=== PATIENT | female | born 1980 | race Caucasian/White ===

== ENCOUNTER 2017-01-14 06:15 | Inpatient (IN) | payer OTHER ==
[~2017-01-14] VITALS: Ht 172.7 cm; Wt 93.0 kg
[~2017-01-14 06:15] MED LIST: ALPR-475 PO; BUPR300T49 PO; HYDR473S51 PO; OMEP-110 PO
[2017-01-14] MEDS ORDERED: SODIUM CHLORIDE 0.9% 1,000 ML IV ONE ×2 (06:38→08:21)
[2017-01-14] MEDS ORDERED: SODIUM CHLORIDE 0.9% 1,000ML IVBOLUS ONE ×2 (07:00→10:30)
[2017-01-14] MEDS ORDERED: ONDANSETRON 2MG/ML, 2ML IVPush ONE (07:00)
[2017-01-14] MEDS ORDERED: SODIUM CHLORIDE FLUSH 10ML SYR IVF ONE (07:00)
[2017-01-14] MEDS ORDERED: HYDROmorphone 1 MG/ML, 1ML ONE ×3 (07:01→08:36)
[2017-01-14] MEDS ORDERED: ONDANSETRON 2MG/ML, 2ML ONE ×3 (07:01→12:10)
[2017-01-14] MEDS: HYDROmorphone 1 MG/ML, 1ML IVPush PRN ×2 (07:03→07:58)
[2017-01-14 07:10] LABS: HCG UR OBC PASS
[2017-01-14] MEDS ORDERED: SIME125C PO (07:13)
[2017-01-14] MEDS ORDERED: BUPR-86 PO (07:13)
[2017-01-14] MEDS ORDERED: ALPR-475 PO (07:14)
[2017-01-14 07:15] LABS: ASPARTATE AMINO TRANSFERASE 42 U/L (15-37); BLOOD UREA NITROGEN 13 mg/dL (7-18)
[2017-01-14] MEDS ORDERED: HYDROmorphone 1 MG/ML, 1ML IVPush PRN ×2 (08:00→08:30)
[2017-01-14] MEDS ORDERED: SODIUM CHLORIDE FLUSH 10ML SYR IVF PRN (08:30)
[2017-01-14] MEDS ORDERED: PIPERACILLIN/TAZO/PMX 3.375GM 50 ML IVPB ONE (08:30)
[2017-01-14] MEDS ORDERED: ONDANSETRON 2MG/ML, 2ML IVPush PRN (08:30)
[2017-01-14] MEDS ORDERED: PIPERACILLIN/TAZO/PMX 3.375GM 50 ML ONE (08:38)
[2017-01-14] MEDS ORDERED: HYDROmorphone 2 MG/ML, 1ML ONE ×2 (10:22→13:34)
[2017-01-14] MEDS ORDERED: HYDROmorphone 2 MG/ML, 1ML IVPush PRN (10:30)
[2017-01-14] MEDS ORDERED: KETAMINE 10 MG/ML, 20ML ONE (11:41)
[2017-01-14] MEDS ORDERED: MIDAZOLAM 1 MG/ML, 2ML ONE (11:41)
[2017-01-14] MEDS ORDERED: FENTANYL PF 250 MCG/5ML ONE (11:41)
[2017-01-14] MEDS ORDERED: NEOSTIGMINE 1 MG/ML, 10ML ONE (12:10)
[2017-01-14] MEDS ORDERED: GLYCOPYRROLATE 0.2MG/1ML ONE (12:10)
[2017-01-14] MEDS ORDERED: SUCCINYLCHOLINE 20 MG/ML, 10ML ONE (12:10)
[2017-01-14] MEDS ORDERED: ROCURONIUM 10 MG/ML ONE ×2 (12:10)
[2017-01-14] MEDS ORDERED: PROPOFOL 10 MG/ML, 20ML ONE (12:10)
[2017-01-14] MEDS ORDERED: DEXAMETHASONE 4 MG/ML, 1ML ONE (12:10)
[2017-01-14] MEDS ORDERED: MEPERIDINE/PF 25MG/0.5ML IVPush PRN (13:00)
[2017-01-14] MEDS ORDERED: HYDROcodone/APAP 7.5-325MG/15ML UDC PO PRN (13:00)
[2017-01-14] MEDS ORDERED: FENTANYL PF 100 MCG/2ML IV PRN (13:00)
[2017-01-14] MEDS ORDERED: METOCLOPRAMIDE 5 MG/ML, 2ML IV PRN (13:00)
[2017-01-14] MEDS: HYDROmorphone 1 MG/ML, 1ML IV PRN ×10 (13:30→23:00)
[2017-01-14] MEDS ORDERED: FENTANYL PF 100 MCG/2ML ONE (13:34)
[2017-01-14 14:54] VITALS: BP 100/65
[2017-01-14] MEDS ORDERED: DIPHENHYDRAMINE 25 MG CAPSULE PO PRN (15:30)
[2017-01-14] MEDS ORDERED: LACTATED RINGERS 1,000 ML IV SCH (15:30)
[2017-01-14] MEDS: KETOROLAC 30 MG/1 ML IV SCH ×2 (15:53→21:48)
[2017-01-14 16:07] VITALS: BP 100/65
[2017-01-14] MEDS: LACTATED RINGERS 1,000 ML IV SCH ×2 (16:44→23:03)
[2017-01-14] MEDS: PIPERACILLIN/TAZO/PMX 3.375GM 50 ML IV SCH ×2 (16:44→23:01)
[2017-01-14 18:58] VITALS: BP 94/61
[2017-01-14] MEDS: OMEPRAZOLE 20 MG CAPSULE.DR PO SCH (21:00)
[2017-01-14] MEDS: ONDANSETRON 2MG/ML, 2ML IV PRN (21:48)
[2017-01-14] MEDS: DIPHENHYDRAMINE 50 MG/ML, 1ML IV PRN (21:49)
[2017-01-15 00:25] VITALS: BP 96/59
[2017-01-15] MEDS: HYDROmorphone 1 MG/ML, 1ML IV PRN ×9 (02:04→22:41)
[2017-01-15] MEDS: KETOROLAC 30 MG/1 ML IV SCH ×4 (03:48→21:31)
[2017-01-15 03:50] VITALS: BP 95/56
[2017-01-15] MEDS: PIPERACILLIN/TAZO/PMX 3.375GM 50 ML IV SCH ×4 (05:12→22:33)
[2017-01-15] MEDS: LACTATED RINGERS 1,000 ML IV SCH ×3 (05:13→21:21)
[2017-01-15] MEDS: ONDANSETRON 2MG/ML, 2ML IV PRN ×4 (05:24→22:33)
[2017-01-15 05:35] LABS: BLOOD UREA NITROGEN 11 mg/dL (7-18)
[2017-01-15 07:11] VITALS: BP 86/46
[2017-01-15] MEDS: ENOXAPARIN 40 MG/0.4 ML SQ SCH (08:59)
[2017-01-15] MEDS: OMEPRAZOLE 20 MG CAPSULE.DR PO SCH ×2 (09:00→20:25)
[2017-01-15] MEDS: DIPHENHYDRAMINE 50 MG/ML, 1ML IV PRN ×2 (12:50→22:33)
[2017-01-15 13:21] VITALS: BP 90/53
[2017-01-15] MEDS ORDERED: LACTATED RINGERS 1,000 ML IVBOLUS ONE (18:00)
[2017-01-15 19:07] VITALS: BP 90/53
[2017-01-15] MEDS ORDERED: SODIUM CHLORIDE 0.9% 1,000 ML IV ONE (23:00)
[2017-01-16] MEDS ORDERED: SODIUM CHLORIDE 0.9% 1,000 ML IV ONE (01:00)
[2017-01-16 01:26] VITALS: BP 88/54
[2017-01-16] MEDS: HYDROmorphone 1 MG/ML, 1ML IV PRN ×5 (01:28→10:05)
[2017-01-16] MEDS: ONDANSETRON 2MG/ML, 2ML IV PRN ×6 (02:37→22:21)
[2017-01-16] MEDS: PIPERACILLIN/TAZO/PMX 3.375GM 50 ML IV SCH ×4 (04:35→22:21)
[2017-01-16 05:22] LABS: BLOOD UREA NITROGEN 12 mg/dL (7-18)
[2017-01-16] MEDS: DIPHENHYDRAMINE 50 MG/ML, 1ML IV PRN ×3 (06:33→22:21)
[2017-01-16] MEDS: LACTATED RINGERS 1,000 ML IV SCH ×3 (07:50→22:22)
[2017-01-16] MEDS: ENOXAPARIN 40 MG/0.4 ML SQ SCH (07:50)
[2017-01-16] MEDS: OMEPRAZOLE 20 MG CAPSULE.DR PO SCH ×2 (07:50→22:22)
[2017-01-16 08:55] VITALS: BP 94/61
[2017-01-16] MEDS: MORPHINE SULFATE 4 MG/ML, 1ML IVPush PRN ×3 (13:02→22:21)
[2017-01-16] MEDS: BUTALB/APAP/CAFFEINE 50MG/325MG/40MG PO PRN (14:23)
[2017-01-16 14:41] VITALS: BP 99/65
[2017-01-16 20:05] VITALS: BP 104/71
[2017-01-17] MEDS: ONDANSETRON 2MG/ML, 2ML IV PRN ×5 (02:14→21:31)
[2017-01-17] MEDS: MORPHINE SULFATE 4 MG/ML, 1ML IVPush PRN ×5 (02:15→21:31)
[2017-01-17] MEDS: PIPERACILLIN/TAZO/PMX 3.375GM 50 ML IV SCH ×4 (04:30→22:28)
[2017-01-17 04:33] VITALS: BP 106/62
[2017-01-17 06:04] LABS: BLOOD UREA NITROGEN 8 mg/dL (7-18)
[2017-01-17 06:07] LABS: ASPARTATE AMINO TRANSFERASE 14 U/L (15-37)
[2017-01-17] MEDS: LACTATED RINGERS 1,000 ML IV SCH ×2 (06:16→10:40)
[2017-01-17 07:00] VITALS: BP 98/60
[2017-01-17] MEDS: ENOXAPARIN 40 MG/0.4 ML SQ SCH (08:52)
[2017-01-17] MEDS: OMEPRAZOLE 20 MG CAPSULE.DR PO SCH ×2 (10:22→19:55)
[2017-01-17] MEDS: DIPHENHYDRAMINE 50 MG/ML, 1ML IV PRN ×2 (10:23→22:28)
[2017-01-17] MEDS ORDERED: MAGNESIUM SULFATE PMX 2GM/50ML 50 ML IVPB ONE (11:30)
[2017-01-17] MEDS: NS + 20MEQ KCL 1,000 ML IV SCH (11:57)
[2017-01-17 14:08] VITALS: BP 110/70
[2017-01-17] MEDS: BUTALB/APAP/CAFFEINE 50MG/325MG/40MG PO PRN ×2 (19:54→23:53)
[2017-01-17 20:05] VITALS: BP 90/66
[2017-01-18 04:15] VITALS: BP 107/67
[2017-01-18] MEDS: DIPHENHYDRAMINE 50 MG/ML, 1ML IV PRN ×5 (04:17→22:22)
[2017-01-18] MEDS: PIPERACILLIN/TAZO/PMX 3.375GM 50 ML IV SCH ×4 (04:17→22:16)
[2017-01-18] MEDS: MORPHINE SULFATE 4 MG/ML, 1ML IVPush PRN ×5 (04:17→21:09)
[2017-01-18] MEDS: ONDANSETRON 2MG/ML, 2ML IV PRN ×5 (04:17→21:09)
[2017-01-18 04:59] LABS: BLOOD UREA NITROGEN 7 mg/dL (7-18)
[2017-01-18 06:58] VITALS: BP 99/63
[2017-01-18 07:03] VITALS: BP 125/84
[2017-01-18] MEDS: NS + 20MEQ KCL 1,000 ML IV SCH (07:55)
[2017-01-18] MEDS: ENOXAPARIN 40 MG/0.4 ML SQ SCH (08:10)
[2017-01-18] MEDS: OMEPRAZOLE 20 MG CAPSULE.DR PO SCH ×2 (08:11→21:04)
[2017-01-18] MEDS: SODIUM CHLORIDE FLUSH 10ML SYR IVF SCH ×2 (10:59→22:17)
[2017-01-18] MEDS: BUTALB/APAP/CAFFEINE 50MG/325MG/40MG PO PRN ×2 (13:32→21:04)
[2017-01-18 14:18] VITALS: BP 89/48
[2017-01-18 20:01] VITALS: BP 84/51
[2017-01-19] MEDS: ONDANSETRON 2MG/ML, 2ML IV PRN ×2 (03:49→09:22)
[2017-01-19] MEDS: MORPHINE SULFATE 4 MG/ML, 1ML IVPush PRN ×2 (03:49→09:22)
[2017-01-19 03:58] VITALS: BP 101/65
[2017-01-19] MEDS: PIPERACILLIN/TAZO/PMX 3.375GM 50 ML IV SCH ×4 (04:57→22:14)
[2017-01-19] MEDS: DIPHENHYDRAMINE 50 MG/ML, 1ML IV PRN (04:57)
[2017-01-19] MEDS: SODIUM CHLORIDE FLUSH 10ML SYR IVF SCH (09:00)
[2017-01-19 09:02] VITALS: BP 102/65
[2017-01-19] MEDS: OMEPRAZOLE 20 MG CAPSULE.DR PO SCH ×2 (09:22→19:41)
[2017-01-19] MEDS: ENOXAPARIN 40 MG/0.4 ML SQ SCH (09:22)
[2017-01-19] MEDS: HYDROcodone/APAP 7.5-325MG/15ML UDC PO PRN ×3 (11:16→19:41)
[2017-01-19 15:25] VITALS: BP 87/58
[2017-01-19 19:35] VITALS: BP 91/72
[2017-01-20] MEDS: HYDROcodone/APAP 7.5-325MG/15ML UDC PO PRN ×2 (01:19→07:46)
[2017-01-20 01:44] VITALS: BP 97/60
[2017-01-20] MEDS ORDERED: HYDR473S47 PO (03:38)
[2017-01-20] MEDS ORDERED: LOPE1LIQ6 PO (03:40)
[2017-01-20] MEDS: PIPERACILLIN/TAZO/PMX 3.375GM 50 ML IV SCH (05:08)
[2017-01-20] MEDS: OMEPRAZOLE 20 MG CAPSULE.DR PO SCH (07:46)
[2017-01-20] MEDS: ENOXAPARIN 40 MG/0.4 ML SQ SCH (07:46)
[2017-01-20] MEDS: SODIUM CHLORIDE FLUSH 10ML SYR IVF SCH (07:46)
[2017-01-20 07:50] VITALS: BP 118/78
== END 2017-01-20 08:45 | disposition home or self-care (01) | DRG 331 ==
LOC: ED 07:53 → EDIP 08:21 → 4NOR 10:02
PROVIDERS: ADMIT Colon & Rectal Surgery; ATTEND Colon & Rectal Surgery
PROC: 0DB80ZZ Excision of Small Intestine, Open Approach (ICD-10-PCS; 2017-01-14)
PROC: 0DQB0ZZ Repair Ileum, Open Approach (ICD-10-PCS; principal; 2017-01-14 11:00)
DX: K43.4 Parastomal hernia with gangrene (principal); E66.01 Morbid (severe) obesity due to excess calories; Z90.49 Acquired absence of other specified parts of digestive tract; K21.9 Gastro-esophageal reflux disease without esophagitis; Z98.84 Bariatric surgery status; Z43.2 Encounter for attention to ileostomy; Z98.51 Tubal ligation status
CPT/HCPCS: 36415; 74022; 76770; 80048; 80053; 81001; 81003; 81025; 82040; 83605; 83735; 85025; 85610; 85730; 87040; 87086; 88307; 96361; 96365; 96375; 96376; C1729; J1100; J1170; J1650; J1885; J2250; J2405; J2543; J2704; J2710; J3010; J3480; J3490; J0330; J1200; J3475; J7030; J7120; Q0163

== ENCOUNTER → 2017-01-25 | Outpatient (CLI) | payer OTHER ==
[~2017-01-25] MED LIST changes: +BUPR-86 PO; +HYDR473S47 PO; +LOPE1LIQ6 PO; +SIME125C PO
== END | disposition home or self-care (01) ==
LOC: WOUND 10:29
PROVIDERS: ATTEND Internal Medicine
DX: T81.31XD Disruption of external operation (surgical) wound, not elsewhere classified, subsequent encounter (principal); K21.9 Gastro-esophageal reflux disease without esophagitis; E66.01 Morbid (severe) obesity due to excess calories; Z93.2 Ileostomy status; Y83.8 Other surgical procedures as the cause of abnormal reaction of the patient, or of later complication, without mention of misadventure at the time of the procedure
CPT/HCPCS: 99215

== ENCOUNTER → 2017-02-01 | Outpatient (CLI) | payer OTHER | END | disposition home or self-care (01) | LOC: WOUND 10:04 | PROVIDERS: ATTEND Internal Medicine | DX: T81.31XD Disruption of external operation (surgical) wound, not elsewhere classified, subsequent encounter (principal); I48.91 Unspecified atrial fibrillation; I10 Essential (primary) hypertension; Z93.2 Ileostomy status; Z72.89 Other problems related to lifestyle; Z86.73 Personal history of transient ischemic attack (TIA), and cerebral infarction without residual deficits; Z85.828 Personal history of other malignant neoplasm of skin; Y83.8 Other surgical procedures as the cause of abnormal reaction of the patient, or of later complication, without mention of misadventure at the time of the procedure | CPT/HCPCS: 99215 ==

== ENCOUNTER → 2017-02-04 | Outpatient (CLI) | payer OTHER | END | disposition home or self-care (01) | LOC: STAR 13:17 | PROVIDERS: ATTEND Colon & Rectal Surgery | DX: Z02.9 Encounter for administrative examinations, unspecified (principal) ==

== ENCOUNTER → 2017-02-08 | Outpatient (CLI) | payer OTHER | END | disposition home or self-care (01) | LOC: WOUND 09:30 | PROVIDERS: ATTEND Internal Medicine | DX: T81.31XD Disruption of external operation (surgical) wound, not elsewhere classified, subsequent encounter (principal); Z93.2 Ileostomy status; I10 Essential (primary) hypertension; Z85.828 Personal history of other malignant neoplasm of skin; Z86.73 Personal history of transient ischemic attack (TIA), and cerebral infarction without residual deficits; E66.01 Morbid (severe) obesity due to excess calories; Z68.26 Body mass index [BMI] 26.0-26.9, adult; K21.9 Gastro-esophageal reflux disease without esophagitis; Y83.8 Other surgical procedures as the cause of abnormal reaction of the patient, or of later complication, without mention of misadventure at the time of the procedure | CPT/HCPCS: 99215 ==

== ENCOUNTER → 2017-02-08 | Outpatient (CLI) | payer OTHER | END | disposition home or self-care (01) | LOC: RAD 07:36 | PROVIDERS: ATTEND Colon & Rectal Surgery | DX: Z01.818 Encounter for other preprocedural examination (principal); K57.30 Diverticulosis of large intestine without perforation or abscess without bleeding; Z98.890 Other specified postprocedural states; Z93.2 Ileostomy status | CPT/HCPCS: 74270 ==

== ENCOUNTER 2017-02-10 07:35 | Day surgery (SDC) | payer OTHER ==
[~2017-02-10] VITALS: Ht 172.7 cm; Wt 78.0 kg
[2017-02-10 07:54] VITALS: BP 100/70
[2017-02-10] MEDS ORDERED: LACTATED RINGERS 1,000 ML IV SCH (07:54)
[2017-02-10] MEDS ORDERED: LIDOCAINE 1%, 2ML SQ PRN (08:00)
[2017-02-10 08:17] LABS: HCG UR OBC PASS
[2017-02-10] MEDS ORDERED: FENTANYL PF 100 MCG/2ML ONE (09:26)
[2017-02-10] MEDS ORDERED: MIDAZOLAM 1 MG/ML, 2ML ONE (09:26)
[2017-02-10] MEDS ORDERED: MEPERIDINE/PF 25MG/0.5ML IVPush PRN (10:30)
[2017-02-10] MEDS ORDERED: HYDROcodone/APAP 7.5-325MG/15ML UDC PO PRN (10:30)
[2017-02-10] MEDS ORDERED: EPHEDRINE 50 MG/ML, 1ML IVPush PRN (10:30)
[2017-02-10] MEDS ORDERED: HYDROmorphone 1 MG/ML, 1ML IV PRN (10:30)
[2017-02-10] MEDS ORDERED: ALBUTEROL SULFATE 2.5 MG/3 ML NPPB PRN (10:30)
[2017-02-10] MEDS ORDERED: ACETAMINOPHEN 325 MG TABLET PO PRN (10:30)
[2017-02-10] MEDS ORDERED: FENTANYL PF 100 MCG/2ML IV PRN (10:30)
[2017-02-10] MEDS ORDERED: MIDAZOLAM 1 MG/ML, 2ML IV PRN (10:30)
[2017-02-10] MEDS ORDERED: ONDANSETRON 2MG/ML, 2ML IVPush PRN (10:30)
[2017-02-10] MEDS ORDERED: MEPERIDINE/PF 25MG/0.5ML ONE (10:40)
[2017-02-10] MEDS ORDERED: PROMETHAZINE 25 MG/ML, 1ML ONE (10:40)
[2017-02-10] MEDS: PROMETHAZINE 25 MG/ML, 1ML IV PRN ×2 (10:43→11:13)
[2017-02-10] MEDS ORDERED: PROPOFOL 10 MG/ML, 50ML ONE (15:44)
[2017-02-10] MEDS ORDERED: KETOROLAC 30 MG/1 ML ONE (15:44)
== END 2017-02-10 12:40 | disposition home or self-care (01) ==
LOC: OUT 07:35
PROVIDERS: ATTEND Colon & Rectal Surgery
DX: K57.30 Diverticulosis of large intestine without perforation or abscess without bleeding (principal); K52.9 Noninfective gastroenteritis and colitis, unspecified; Z93.2 Ileostomy status; Z90.49 Acquired absence of other specified parts of digestive tract; K21.9 Gastro-esophageal reflux disease without esophagitis; Z88.6 Allergy status to analgesic agent; F32.9 Major depressive disorder, single episode, unspecified; E66.01 Morbid (severe) obesity due to excess calories; Z68.26 Body mass index [BMI] 26.0-26.9, adult; Z90.3 Acquired absence of stomach [part of]; Z98.51 Tubal ligation status; Z82.49 Family history of ischemic heart disease and other diseases of the circulatory system; Z80.3 Family history of malignant neoplasm of breast; Z80.1 Family history of malignant neoplasm of trachea, bronchus and lung; Z83.3 Family history of diabetes mellitus; Z87.891 Personal history of nicotine dependence
CPT/HCPCS: 45378; 81025; J1885; J2175; J2250; J2550; J2704; J7120; J3010

== ENCOUNTER → 2017-03-09 | Outpatient (CLI) | payer OTHER ==
[2017-03-09 11:22] LABS: ASPARTATE AMINO TRANSFERASE 40 U/L (15-37); BLOOD UREA NITROGEN 14 mg/dL (7-18)
== END | disposition home or self-care (01) ==
LOC: STAR 10:14
PROVIDERS: ATTEND Colon & Rectal Surgery
DX: Z01.818 Encounter for other preprocedural examination (principal)
CPT/HCPCS: 36415; 80053; 85025; 93005

== ENCOUNTER 2017-09-02 17:01 | Inpatient (IN) | payer OTHER ==
[~2017-09-02] VITALS: Ht 172.7 cm; Wt 86.8 kg
[~2017-09-02 17:01] MED LIST changes: +HYDR15SO3 PO; +METR500T PO; +NEOM500T PO; +ONDA4TAB7 PO
[2017-09-02] MEDS ORDERED: ONDANSETRON 2MG/ML, 2ML IVPush ONE ×2 (17:30→20:30)
[2017-09-02] MEDS ORDERED: SODIUM CHLORIDE FLUSH 10ML SYR IVF ONE ×2 (17:30→19:00)
[2017-09-02 17:49] LABS: HEMATOCRIT 35.8 % (34.6-47.8); HEMOGLOBIN 11.6 g/dL (11.7-16.4); WHITE BLOOD COUNT 3.4 x10^3/uL (3.4-10)
[2017-09-02] MEDS ORDERED: ONDANSETRON 2MG/ML, 2ML ONE ×2 (17:49→20:26)
[2017-09-02] MEDS ORDERED: MORPHINE SULFATE 4 MG/ML, 1ML ONE ×3 (17:49→20:26)
[2017-09-02 18:03] LABS: BLOOD UREA NITROGEN 7 mg/dL (7-18)
[2017-09-02] MEDS: MORPHINE SULFATE 4 MG/ML, 1ML IVPush PRN ×2 (18:04→19:03)
[2017-09-02 18:08] LABS: ASPARTATE AMINO TRANSFERASE 24 U/L (15-37)
[2017-09-02] MEDS ORDERED: OMNIPAQUE 350 MG/ML, 100ML BOTTLE ONE (18:37)
[2017-09-02] MEDS ORDERED: SODIUM CHLORIDE 0.9% 1,000ML IVBOLUS ONE (19:00)
[2017-09-02] MEDS ORDERED: MORPHINE SULFATE 4 MG/ML, 1ML IVPush ONE (20:30)
[2017-09-02] MEDS ORDERED: DOCUSATE 100 MG CAPSULE PO PRN (20:30)
[2017-09-02] MEDS ORDERED: ENALAPRILAT 1.25 MG/ML, 2ML IVPush PRN (20:30)
[2017-09-02] MEDS ORDERED: TEMAZEPAM 15 MG CAPSULE PO PRN (20:30)
[2017-09-02] MEDS ORDERED: ACETAMINOPHEN 325 MG TABLET PO PRN (20:30)
[2017-09-02] MEDS ORDERED: ENOXAPARIN 40 MG/0.4 ML SQ SCH (20:30)
[2017-09-02] MEDS: SODIUM CHLORIDE 0.9% 1,000 ML IV SCH (20:58)
[2017-09-02 21:08] VITALS: BP 98/63
[2017-09-02] MEDS: morphine SULFATE 10 MG/ML, 1ML IVPush PRN ×2 (22:18→22:45)
[2017-09-02] MEDS: ONDANSETRON 2MG/ML, 2ML IVPush PRN (22:18)
[2017-09-03 01:17] VITALS: BP 100/67
[2017-09-03] MEDS: morphine SULFATE 10 MG/ML, 1ML IVPush PRN ×3 (02:21→09:08)
[2017-09-03] MEDS: ONDANSETRON 2MG/ML, 2ML IVPush PRN (03:49)
[2017-09-03] MEDS: SODIUM CHLORIDE 0.9% 1,000 ML IV SCH ×2 (03:49→12:01)
[2017-09-03] MEDS ORDERED: PROMETHAZINE 12.5 MG SUPP PR PRN (06:00)
[2017-09-03 06:42] VITALS: BP 96/60
[2017-09-03] MEDS ORDERED: OMEPRAZOLE 20 MG CAPSULE.DR PO SCH (09:00)
[2017-09-03] MEDS ORDERED: METOCLOPRAMIDE 5 MG/ML, 2ML IVPush PRN (09:30)
[2017-09-03] MEDS ORDERED: PANTOPRAZOLE 40 MG IV IVPush SCH (09:30)
[2017-09-03] MEDS ORDERED: HYDROcodone/APAP 7.5-325MG/15ML UDC PO PRN (11:00)
[2017-09-03 13:59] VITALS: BP 101/64
[2017-09-03 14:05] VITALS: BP 90/55
[2017-09-03] MEDS ORDERED: PROM50SU6 PR (15:38)
[2017-09-03] MEDS ORDERED: METO5TAB57 PO (15:38)
== END 2017-09-03 18:50 | disposition home or self-care (01) | DRG 392 ==
LOC: ED 19:37 → EDIP 20:39 → 3NE 20:39
PROVIDERS: ADMIT Surgery; ATTEND Surgery
DX: R10.11 Right upper quadrant pain (principal); F33.0 Major depressive disorder, recurrent, mild; E66.9 Obesity, unspecified; R11.2 Nausea with vomiting, unspecified; K21.9 Gastro-esophageal reflux disease without esophagitis; Z90.49 Acquired absence of other specified parts of digestive tract; Z68.29 Body mass index [BMI] 29.0-29.9, adult; Z90.3 Acquired absence of stomach [part of]; Z93.2 Ileostomy status; Z88.5 Allergy status to narcotic agent
CPT/HCPCS: 36415; 74177; 80053; 81003; 83690; 84703; 85025; 85379; 93005; 96361; 96374; 96375; 96376; J2405; Q9967; C9113; J2270; J2765; J7030

== ENCOUNTER 2017-09-06 15:01 | Emergency (ER) | payer OTHER ==
[~2017-09-06] VITALS: Ht 172.7 cm; Wt 86.3 kg
[~2017-09-06 15:01] MED LIST changes: +METO5TAB57 PO; +PROM50SU6 PR
[2017-09-06] MEDS ORDERED: SODIUM CHLORIDE 0.9% 1,000ML IVBOLUS ONE (16:00)
[2017-09-06] MEDS ORDERED: PROMETHAZINE 25 MG/ML, 1ML IM ONE (16:00)
[2017-09-06] MEDS ORDERED: SODIUM CHLORIDE FLUSH 10ML SYR IVF ONE (16:00)
[2017-09-06 16:32] LABS: HEMOGLOBIN 12.8 g/dL (11.7-16.4); WHITE BLOOD COUNT 3.9 x10^3/uL (3.4-10)
[2017-09-06 16:40] LABS: BLOOD UREA NITROGEN 9 mg/dL (7-18)
[2017-09-06 16:47] LABS: ASPARTATE AMINO TRANSFERASE 31 U/L (15-37)
[2017-09-06 17:32] VITALS: BP 100/66
== END 2017-09-06 18:13 | disposition home or self-care (01) ==
LOC: ED 17:30
DX: A08.4 Viral intestinal infection, unspecified (principal); K21.9 Gastro-esophageal reflux disease without esophagitis; Z90.49 Acquired absence of other specified parts of digestive tract
CPT/HCPCS: 36415; 80053; 81003; 83690; 84703; 85025; 93005; 96360; 99285; J7030

== ENCOUNTER → 2017-11-11 | Outpatient (CLI) | payer OTHER ==
[2017-11-11 10:29] LABS: BASOPHILS # (AUTO) 0.02 x10^3/uL (0-0.1); BASOPHILS % (AUTO) 1 % (0-1); EOSINOPHILS # (AUTO) 0.05 x10^3/uL (0-0.4); EOSINOPHILS % (AUTO) 1 % (1-7); LYMPHOCYTES # (AUTO) 1.31 x10^3/uL (1-3.4); LYMPHOCYTES % (AUTO) 35 % (22-44); MD NO; MEAN CORPUSCULAR HEMOGLOBIN 27.2 pg (27.0-34.8); MEAN CORPUSCULAR HGB CONC 33.2 g/dL (32.4-35.8); MEAN CORPUSCULAR VOLUME 82.1 fL (80-100); MEAN PLATELET VOLUME 6.3 fL (7.4-10.4); MONOCYTES # (AUTO) 0.29 x10^3/uL (0.2-0.8); MONOCYTES % (AUTO) 8 % (2-9); NEUTROPHILS # (AUTO) 2.06 x10^3/uL (1.8-6.8); NEUTROPHILS % (AUTO) 55 % (42-75); PLATELET COUNT 290 x10^3/uL (130-400); RED BLOOD COUNT 4.06 x10^6/uL (3.82-5.3); RED CELL DISTRIBUTION WIDTH 17.3 % (9.6-15.2)
[2017-11-11 10:41] LABS: ALANINE AMINOTRANSFERASE 30 U/L (12-78); ALBUMIN 3.7 g/dL (3.4-5.0); ANION GAP 4 mmol/L (5-15); CALCIUM 8.3 mg/dL (8.5-10.1); CHLORIDE 108 mmol/L (98-107); CREATININE 0.77 mg/dL (0.55-1.02)
[2017-11-11 11:06] LABS: % IRON SATURATION 7 % (20-55); ALKALINE PHOSPHATASE 93 U/L (45-117); BILIRUBIN,TOTAL 0.3 mg/dL (0.2-1.0); IRON LEVEL 29 mcg/dL (50-170); TOTAL IRON BINDING CAPACITY 440 mcg/dL (250-450); TOTAL PROTEIN 6.6 g/dL (6.4-8.2)
== END | disposition home or self-care (01) ==
LOC: LAB 10:17
PROVIDERS: ATTEND Internal Medicine Gastroenterology
DX: R11.0 Nausea (principal); R10.9 Unspecified abdominal pain; R14.0 Abdominal distension (gaseous)
CPT/HCPCS: 36415; 80053; 82306; 82607; 82728; 82746; 83540; 83550; 85025

== ENCOUNTER → 2017-12-16 | Outpatient (CLI) | payer OTHER | END | disposition home or self-care (01) | LOC: CFH 08:50 | PROVIDERS: ATTEND Internal Medicine Gastroenterology | DX: K21.9 Gastro-esophageal reflux disease without esophagitis (principal); K44.9 Diaphragmatic hernia without obstruction or gangrene; Z98.84 Bariatric surgery status | CPT/HCPCS: 74241 ==

== ENCOUNTER → 2018-07-13 | Outpatient (CLI) | payer OTHER ==
[~2018-07-13] MED LIST changes: +ALPR0.25 PO; +BUPR300T4 PO; +CALC300T4 PO; +COLE1TAB2 PO; +MULT1TAB60 PO; +OMEP40CA6 PO; +POLY17PO5 PO; +SIME62.5 PO
== END | disposition home or self-care (01) ==
LOC: STAR 10:06
PROVIDERS: ATTEND Thoracic Surgery (Cardiothoracic Vascular Surgery)
DX: Z02.9 Encounter for administrative examinations, unspecified (principal)

== ENCOUNTER 2018-07-19 06:09 | Observation (INO) | payer OTHER ==
[2018-07-13 10:44] VITALS: BP 109/66
[~2018-07-19] VITALS: Ht 172.7 cm; Wt 94.0 kg
[~2018-07-19 06:09] MED LIST changes: -COLE1TAB2 PO
[2018-07-19] MEDS ORDERED: BUPIVACAINE/PF 0.5% ONE (06:49)
[2018-07-19] MEDS ORDERED: EPINEPHRINE 1 MG/ML, 1ML ONE (06:49)
[2018-07-19] MEDS ORDERED: LACTATED RINGERS 1,000 ML IV SCH (07:38)
[2018-07-19 07:47] LABS: HCG UR SG 1.007 (1.003-1.030)
[2018-07-19] MEDS ORDERED: MIDAZOLAM 1 MG/ML, 2ML ONE (07:49)
[2018-07-19] MEDS ORDERED: COLE1TAB2 PO (07:49)
[2018-07-19] MEDS ORDERED: SUCCINYLCHOLINE 20 MG/ML, 10ML ONE (07:49)
[2018-07-19] MEDS ORDERED: FENTANYL PF 100 MCG/2ML ONE ×3 (07:49→10:41)
[2018-07-19] MEDS ORDERED: CEFAZOLIN 1,000 MG ONE ×2 (07:49)
[2018-07-19] MEDS ORDERED: PROPOFOL 10 MG/ML, 20ML ONE (07:49)
[2018-07-19] MEDS ORDERED: ONDANSETRON ODT 8 MG PO ONE (08:00)
[2018-07-19] MEDS ORDERED: LIDOCAINE-MPF 1%, 2ML INFIL ONE (08:00)
[2018-07-19] MEDS ORDERED: ACETAMINOPHEN 500 MG TABLET PO ONE (08:00)
[2018-07-19] MEDS ORDERED: LORazepam 2 MG/ML, 1ML IVPush PRN ×2 (08:30→15:30)
[2018-07-19] MEDS ORDERED: hydrALAzine 20 MG/ML, 1ML IV PRN (08:30)
[2018-07-19] MEDS ORDERED: SCOPOLAMINE PATCH, 1.5MG PATCH.TD72 TD PRN (08:30)
[2018-07-19] MEDS ORDERED: LABETALOL 5MG/ML, 20ML IV PRN (08:30)
[2018-07-19] MEDS ORDERED: ALBUTEROL/IPRATROPIUM 2.5MG/0.5MG, 3 ML NPPB PRN (08:30)
[2018-07-19] MEDS ORDERED: PROCHLORPERAZINE 5 MG/ML, 2ML IV PRN (08:30)
[2018-07-19] MEDS ORDERED: MORPHINE SULFATE 4 MG/ML, 1ML IVPush PRN (08:30)
[2018-07-19] MEDS ORDERED: MEPERIDINE/PF 25MG/0.5ML IVPush PRN (08:30)
[2018-07-19] MEDS ORDERED: MIDAZOLAM 1 MG/ML, 2ML IV PRN (08:30)
[2018-07-19] MEDS ORDERED: ROCURONIUM 10 MG/ML,10ML ONE (08:49)
[2018-07-19] MEDS ORDERED: GLYCOPYRROLATE 0.2MG/1ML, 5ML ONE (08:49)
[2018-07-19] MEDS ORDERED: NEOSTIGMINE 1 MG/ML, 10ML ONE (08:49)
[2018-07-19] MEDS ORDERED: DEXAMETHASONE 4 MG/ML, 1ML ONE ×2 (09:06)
[2018-07-19] MEDS: LACTATED RINGERS 1,000 ML IV SCH ×3 (10:36→19:45)
[2018-07-19] MEDS: FENTANYL PF 100 MCG/2ML IV PRN ×2 (10:41→10:49)
[2018-07-19] MEDS ORDERED: HYDROcodone/APAP 7.5-325MG/15ML UDC ONE (11:00)
[2018-07-19] MEDS ORDERED: HYDROcodone/APAP 7.5-325MG/15ML UDC PO PRN (11:00)
[2018-07-19] MEDS ORDERED: HYDROmorphone 2 MG/ML, 1ML ONE (11:00)
[2018-07-19] MEDS ORDERED: PROMETHAZINE 25 MG/ML, 1ML ONE (11:00)
[2018-07-19] MEDS ORDERED: ONDANSETRON 2MG/ML, 2ML IVPush PRN (11:00)
[2018-07-19] MEDS: HYDROmorphone 1 MG/ML, 1ML IV PRN ×4 (11:05→11:30)
[2018-07-19] MEDS: HYDROcodone/APAP 7.5-325MG/15ML UDC PO PRN ×2 (11:17→19:37)
[2018-07-19] MEDS ORDERED: PROMETHAZINE 25 MG/ML, 1ML IV PRN (11:30)
[2018-07-19] MEDS: morphine SULFATE 10 MG/ML, 1ML IVPush PRN ×2 (13:59→17:31)
[2018-07-19] MEDS ORDERED: LORazepam 2 MG/ML, 1ML ONE (15:21)
[2018-07-19] MEDS ORDERED: KETOROLAC 30 MG/1 ML ONE (15:23)
[2018-07-19] MEDS: KETOROLAC 30 MG/1 ML IVPush PRN (15:37)
[2018-07-19 19:51] VITALS: BP 100/64
[2018-07-19 23:45] VITALS: BP 103/67
[2018-07-20] MEDS: HYDROcodone/APAP 7.5-325MG/15ML UDC PO PRN ×4 (00:06→11:53)
[2018-07-20 04:00] VITALS: BP 94/60
[2018-07-20] MEDS: KETOROLAC 30 MG/1 ML IVPush PRN ×2 (04:42→10:35)
[2018-07-20 07:49] VITALS: BP 100/61
[2018-07-20] MEDS: LACTATED RINGERS 1,000 ML IV SCH ×2 (08:00→09:26)
[2018-07-20] MEDS ORDERED: HYDR15SO3 PO (10:30)
[2018-07-20 11:39] VITALS: BP 107/69
== END 2018-07-20 12:14 | disposition home or self-care (01) ==
LOC: OUT 06:09 → INTOOBSV 15:11 → 4NOR 15:11 → OUT 15:11 → 4NOR 17:01
PROVIDERS: ADMIT Thoracic Surgery (Cardiothoracic Vascular Surgery); ATTEND Thoracic Surgery (Cardiothoracic Vascular Surgery)
DX: K44.9 Diaphragmatic hernia without obstruction or gangrene (principal); K21.9 Gastro-esophageal reflux disease without esophagitis; K43.2 Incisional hernia without obstruction or gangrene; K66.0 Peritoneal adhesions (postprocedural) (postinfection); Z98.84 Bariatric surgery status
CPT/HCPCS: 43280; 49560; 49568; 74018; 81025; 96374; 96375; 96376; C1781; G0378; J0171; J0330; J0690; J1100; J1170; J1885; J2060; J2250; J2270; J2405; J2550; J2704; J2710; J3010; J3490; J7120; Q0162

== ENCOUNTER 2019-02-23 07:28 | Outpatient (CLI) | payer OTHER ==
[~2019-02-23 07:28] MED LIST changes: +COLE1TAB2 PO
[2019-02-23 08:02] LABS: BASOPHILS # (AUTO) 0.02 x10^3/uL (0-0.1); BASOPHILS % (AUTO) 1 % (0-1); EOSINOPHILS # (AUTO) 0.03 x10^3/uL (0-0.4); EOSINOPHILS % (AUTO) 1 % (1-7); LYMPHOCYTES % (AUTO) 28 % (22-44); MD NO; MEAN CORPUSCULAR HEMOGLOBIN 24.7 pg (27.0-34.8); MEAN CORPUSCULAR HGB CONC 31.3 g/dL (32.4-35.8); MEAN CORPUSCULAR VOLUME 78.9 fL (80-100); MEAN PLATELET VOLUME 6.4 fL (7.4-10.4); MONOCYTES # (AUTO) 0.27 x10^3/uL (0.2-0.8); MONOCYTES % (AUTO) 8 % (2-9); NEUTROPHILS # (AUTO) 2.24 x10^3/uL (1.8-6.8); NEUTROPHILS % (AUTO) 63 % (42-75); PLATELET COUNT 337 x10^3/uL (130-400); RED BLOOD COUNT 4.26 x10^6/uL (3.82-5.3); RED CELL DISTRIBUTION WIDTH 16.9 % (9.6-15.2)
[2019-02-23 08:09] LABS: ALBUMIN 3.9 g/dL (3.4-5.0); ANION GAP 6 mmol/L (5-15); CALCIUM 8.7 mg/dL (8.5-10.1); CHLORIDE 107 mmol/L (98-107)
[2019-02-23 08:19] LABS: ALANINE AMINOTRANSFERASE 27 U/L (12-78); ALKALINE PHOSPHATASE 76 U/L (45-117); BILIRUBIN,TOTAL 0.3 mg/dL (0.2-1.0); CHOL/HDL RATIO 2.1; CHOLESTEROL, TOTAL 214 mg/dL (140-239); CREATININE 0.87 mg/dL (0.55-1.02); FREE T4 (FREE THYROXINE) 0.87 ng/dL (0.76-1.46); HDL CHOL % 47 % (28-40); HDL CHOLESTEROL (DIRECT) 100 mg/dL (40-60); LDL CHOLESTEROL,CALCULATED 96 mg/dL (54-169); TOTAL PROTEIN 6.9 g/dL (6.4-8.2); TRIGLYCERIDES 92 mg/dL (50-200); VLDL CHOLESTEROL 18 mg/dL (0-25)
== END 2019-02-23 23:59 | disposition home or self-care (01) ==
LOC: LAB 07:28
PROVIDERS: ATTEND Family Medicine
DX: Z13.220 Encounter for screening for lipoid disorders (principal); Z13.1 Encounter for screening for diabetes mellitus; Z01.419 Encounter for gynecological examination (general) (routine) without abnormal findings; R12 Heartburn; N94.6 Dysmenorrhea, unspecified; F31.75 Bipolar disorder, in partial remission, most recent episode depressed
CPT/HCPCS: 36415; 80053; 80061; 82306; 82728; 83540; 83550; 84439; 84443; 85025

== ENCOUNTER → 2019-03-16 | Outpatient (CLI) | payer OTHER | END | disposition home or self-care (01) | LOC: CFH 12:56 | PROVIDERS: ATTEND Family Medicine | DX: N63.0 Unspecified lump in unspecified breast (principal); N94.6 Dysmenorrhea, unspecified; Z80.3 Family history of malignant neoplasm of breast | CPT/HCPCS: 76642; 76830; 77066; G0279 ==

== ENCOUNTER 2019-07-04 15:01 | Outpatient (CLI) | payer OTHER ==
[~2019-07-04 15:01] MED LIST changes: -ALPR-475 PO; +ALPR0.5T7 PO
[2019-07-04] MEDS ORDERED: BUPR300T49 PO (15:25)
== END 2019-07-04 23:59 | disposition home or self-care (01) ==
LOC: STAR 15:01
PROVIDERS: ATTEND Thoracic Surgery (Cardiothoracic Vascular Surgery)
DX: Z02.9 Encounter for administrative examinations, unspecified (principal)

== ENCOUNTER 2019-07-11 08:14 | Observation (INO) | payer OTHER ==
[~2019-07-11] VITALS: Ht 172.7 cm; Wt 97.5 kg
[2019-07-11] MEDS ORDERED: LACTATED RINGERS 1,000 ML IV SCH (08:36)
[2019-07-11] MEDS ORDERED: GABAPENTIN 300 MG CAPSULE PO ONE (08:39)
[2019-07-11] MEDS ORDERED: SCOPOLAMINE PATCH, 1.5MG PATCH.TD72 TD ONE (08:39)
[2019-07-11] MEDS ORDERED: ACETAMINOPHEN 500 MG TABLET PO ONE (08:39)
[2019-07-11 08:54] VITALS: BP 105/66
[2019-07-11] MEDS ORDERED: LIDOCAINE-MPF 1%, 2ML INFIL ONE (09:00)
[2019-07-11 09:41] LABS: HCG UR SG 1.003 (1.003-1.030)
[2019-07-11] MEDS ORDERED: EPINEPHRINE 1 MG/ML, 1ML ONE (10:17)
[2019-07-11] MEDS ORDERED: BUPIVACAINE/PF 0.5% ONE (10:17)
[2019-07-11] MEDS ORDERED: NEOSTIGMINE 1 MG/ML, 10ML ONE (10:29)
[2019-07-11] MEDS ORDERED: KETOROLAC 30 MG/1 ML ONE ×2 (10:29→12:12)
[2019-07-11] MEDS ORDERED: GLYCOPYRROLATE 0.2MG/1ML, 5ML ONE ×2 (10:29→11:08)
[2019-07-11] MEDS ORDERED: CEFAZOLIN 1,000 MG ONE (10:29)
[2019-07-11] MEDS ORDERED: PROPOFOL 10 MG/ML, 20ML ONE (10:29)
[2019-07-11] MEDS ORDERED: ONDANSETRON 2MG/ML, 2ML ONE ×2 (10:29→11:08)
[2019-07-11] MEDS ORDERED: ROCURONIUM 10 MG/ML,10ML ONE ×2 (10:29→11:08)
[2019-07-11] MEDS ORDERED: DEXAMETHASONE 4 MG/ML, 1ML ONE ×2 (10:29→11:08)
[2019-07-11] MEDS ORDERED: HALOPERIDOL 5 MG/ML IV PRN (10:30)
[2019-07-11] MEDS ORDERED: PROMETHAZINE 25 MG/ML, 1ML IV PRN (10:30)
[2019-07-11] MEDS ORDERED: HYDROmorphone 2 MG/ML, 1ML IVPush PRN (10:30)
[2019-07-11] MEDS ORDERED: hydrALAzine 20 MG/ML, 1ML IV PRN ×2 (10:30→14:30)
[2019-07-11] MEDS ORDERED: MEPERIDINE/PF 25MG/ML,1ML IVPush PRN (10:30)
[2019-07-11] MEDS ORDERED: LABETALOL 5MG/ML, 20ML IV PRN (10:30)
[2019-07-11] MEDS ORDERED: FENTANYL PF 100 MCG/2ML ONE ×8 (11:08→14:46)
[2019-07-11] MEDS ORDERED: SUCCINYLCHOLINE 20 MG/ML, 10ML ONE (11:08)
[2019-07-11] MEDS ORDERED: MIDAZOLAM 1 MG/ML, 2ML ONE (11:08)
[2019-07-11] MEDS ORDERED: morphine SULFATE 10 MG/ML, 1ML ONE (12:42)
[2019-07-11] MEDS: MORPHINE SULFATE 4 MG/ML, 1ML IVPush PRN ×3 (12:45→13:05)
[2019-07-11] MEDS ORDERED: DIAZEPAM 5 MG/ML, 2ML ONE (12:46)
[2019-07-11] MEDS ORDERED: MEPERIDINE/PF 25MG/ML,1ML ONE (12:59)
[2019-07-11] MEDS ORDERED: morphine SULFATE 10 MG/ML, 1ML IVPush PRN (13:00)
[2019-07-11] MEDS ORDERED: ONDANSETRON 2MG/ML, 2ML IVPush PRN ×2 (13:00→14:30)
[2019-07-11] MEDS ORDERED: FENTANYL PF 100 MCG/2ML IV ONE (13:00)
[2019-07-11] MEDS ORDERED: DIAZEPAM 5 MG/ML, 2ML IVPush PRN (13:00)
[2019-07-11] MEDS: FENTANYL PF 100 MCG/2ML IVPush PRN ×2 (13:27→13:35)
[2019-07-11] MEDS ORDERED: HYDROmorphone 2MG TABLET PO ONE (13:30)
[2019-07-11] MEDS: FENTANYL PF 100 MCG/2ML IV PRN ×3 (14:02→14:48)
[2019-07-11] MEDS: LACTATED RINGERS 1,000 ML IV SCH ×3 (14:23→22:23)
[2019-07-11] MEDS ORDERED: ROPIvacaine/PF 0.2%, 20 ML ONE (14:29)
[2019-07-11] MEDS ORDERED: DIPHENHYDRAMINE 50 MG/ML, 1ML IV PRN (14:30)
[2019-07-11] MEDS ORDERED: ENALAPRILAT 1.25 MG/ML, 2ML IV PRN (14:30)
[2019-07-11] MEDS ORDERED: LORazepam 2 MG/ML, 1ML IV PRN (14:30)
[2019-07-11] MEDS ORDERED: DIPHENHYDRAMINE 25 MG CAPSULE PO PRN (14:30)
[2019-07-11] MEDS ORDERED: HYDROmorphone 1 MG/ML, 1ML INJ IV PRN (14:30)
[2019-07-11] MEDS ORDERED: LORazepam 1MG TABLET PO PRN (14:30)
[2019-07-11] MEDS: FAMOTIDINE 20 MG/2 ML IV SCH (15:50)
[2019-07-11] MEDS: HYDROmorphone 2 MG/ML, 1ML IV PRN ×5 (16:04→21:55)
[2019-07-11] MEDS: HYDROcodone/APAP 5/325 TABLET PO PRN ×2 (17:48→21:50)
[2019-07-11] MEDS: KETOROLAC 30 MG/1 ML IVPush PRN (17:57)
[2019-07-11] MEDS: DIAZEPAM 5 MG/ML, 2ML IV PRN (19:23)
[2019-07-11 19:28] VITALS: BP 85/51
[2019-07-12] MEDS: KETOROLAC 30 MG/1 ML IVPush PRN ×4 (00:12→18:35)
[2019-07-12] MEDS: LACTATED RINGERS 1,000 ML IV SCH ×5 (00:19→22:23)
[2019-07-12] MEDS: HYDROcodone/APAP 5/325 TABLET PO PRN ×6 (02:01→22:41)
[2019-07-12] MEDS: DIAZEPAM 5 MG/ML, 2ML IV PRN ×2 (02:01→08:54)
[2019-07-12 03:37] VITALS: BP 90/56
[2019-07-12] MEDS: HYDROmorphone 2 MG/ML, 1ML IV PRN ×3 (03:39→07:51)
[2019-07-12] MEDS: FAMOTIDINE 20 MG/2 ML IV SCH (03:39)
[2019-07-12 07:33] VITALS: BP 96/61
[2019-07-12] MEDS: ENOXAPARIN 40 MG/0.4 ML SQ SCH (07:51)
[2019-07-12 15:12] VITALS: BP 84/51
[2019-07-12 19:44] VITALS: BP 90/56
[2019-07-12] MEDS: FAMOTIDINE 20 MG TABLET PO SCH (19:56)
[2019-07-13] MEDS: KETOROLAC 30 MG/1 ML IVPush PRN ×2 (00:38→09:03)
[2019-07-13 02:10] VITALS: BP 90/57
[2019-07-13] MEDS: HYDROcodone/APAP 5/325 TABLET PO PRN ×2 (02:55→08:03)
[2019-07-13] MEDS: LACTATED RINGERS 1,000 ML IV SCH (06:23)
[2019-07-13] MEDS: FAMOTIDINE 20 MG TABLET PO SCH (08:03)
[2019-07-13] MEDS: ENOXAPARIN 40 MG/0.4 ML SQ SCH (08:04)
[2019-07-13 08:28] VITALS: BP 87/57
[2019-07-13] MEDS ORDERED: HYDR-3240 PO (09:19)
== END 2019-07-13 09:50 | disposition home or self-care (01) ==
LOC: OUT 08:14 → 4NE 15:19 → OUT 22:43 → 4NE 22:44 → DCLOUNGE 07-13 09:40
PROVIDERS: ADMIT Thoracic Surgery (Cardiothoracic Vascular Surgery); ATTEND Thoracic Surgery (Cardiothoracic Vascular Surgery)
DX: K43.2 Incisional hernia without obstruction or gangrene (principal); K21.9 Gastro-esophageal reflux disease without esophagitis; F32.9 Major depressive disorder, single episode, unspecified
CPT/HCPCS: 49656; 81025; 96372; 96374; 96375; 96376; C1781; G0378; J0171; J0330; J0690; J1100; J1170; J1650; J1885; J2060; J2175; J2250; J2270; J2405; J2704; J2710; J2795; J3010; J3360; J3490; J7120; S0020; S2900